=== PATIENT | male | born 1980 | race Caucasian/White ===

== ENCOUNTER → 2020-03-09 07:17 | Outpatient (CLI) | payer OTHER, SELFPAY ==
[2020-03-09 08:03] LABS: Add Manual Diff / Slide Review NO; Basophils Absolute Auto 0 /uL (0-100); Basophils Percent Auto 0.3 % (0-2); Eosinophils Absolute Auto 300 /uL (0-450); Eosinophils Percent Auto 4.9 % (2-4); Hematocrit 43.4 % (41-53); Hemoglobin 15.3 g/dL (13.5-17.5); Lymphocytes Absolute Auto 1700 /uL (1100-4500); Lymphocytes Percent Auto 29.4 % (25-40); Mean Corpuscular HGB Conc 35.2 % (30-36); Mean Corpuscular Volume 88.2 fL (80-100); Monocytes Absolute Auto 600 /uL (0-900); Monocytes Percent Auto 10.4 % (3-14); Neutrophils Absolute Auto 3100 /uL (1500-7000); Platelet Count 267 X10^3/uL (150-400); Red Blood Cell Count 4.93 X10^6/uL (4.5-5.9); Red Cell Distribution Width 13.1 % (11.6-14.8); White Blood Cell Count 5.7 X10^3/uL (4.5-11.0)
[2020-03-09 08:23] LABS: Alanine Aminotransferase 58 IU/L (<50); Albumin 4.6 g/dL (3.5-5.0); Albumin Globulin Ratio 1.6 (1.0-2.8); Alkaline Phosphatase 68 U/L (38-126); Aspartate Aminotransferase 40 IU/L (17-59); BUN Creatinine Ratio 16.2 (6-22); Bilirubin Total 1.5 mg/dL (0.2-1.3); Blood Urea Nitrogen 16 mg/dL (9-20); Calcium 9.9 mg/dL (8.4-10.2); Carbon Dioxide 26 mmol/L (22-32); Chloride 104 mmol/L (98-107); Cholesterol 120 mg/dL (140-199); Estimated Glomerular Filt Rate > 60.0 mL/min (>60); Globulin 2.8 g/dL (1.7-4.1); Glucose 138 mg/dL (70-100); HDL Cholesterol 54 mg/dL (40-60); HEMOLYSIS < 15 (0-50); LDL Cholesterol Calculated 55 mg/dL (<100); Potassium 4.8 mmol/L (3.4-5.1); Sodium 139 mmol/L (137-145); Total Protein 7.4 g/dL (6.3-8.2); Triglycerides 53 mg/dL (35-150)
[2020-03-09 08:55] LABS: Thyroid Stimulating Hormone 1.65 uIU/mL (0.47-4.68)
== END ==
PROVIDERS: PCP Family Medicine; Referring Provider Family Medicine; Visit Provider Family Medicine
DX: F90.9 Attention-deficit hyperactivity disorder, unspecified type (principal)
CPT/HCPCS: 36415; 80053; 80061; 84443; 85025

== ENCOUNTER → 2022-01-21 07:46 | Outpatient (CLI) | payer OTHER, SELFPAY ==
--- NOTE | 2022-01-21 07:47 | DI.US.S_ITS ---
PROCEDURE: US SCROTUM INDICATIONS: RIGHT SCROTAL LUMP TECHNIQUE: Real-time scanning was performed of the scrotum and testicles, with image documentation. Color and pulse Doppler interrogation was performed of both testicles. COMPARISON: None. FINDINGS: Right: Testicle is normal in size at 5.3 x 2.5 x 3.0 cm, and homogenous in echotexture. Epididymal cyst is present measuring 8 x 6 x 8 mm. No hydrocele or varicoceles. Overlying scrotal skin is normal in thickness. Left: Testicle is normal in size at 5.1 x 2.2 x 2.9 cm, and homogeneous in echotexture. Epididymis is normal in overall size and morphology. No hydrocele or varicoceles. Overlying scrotal skin is normal in thickness. Doppler: Color and pulse Doppler demonstrate normal and symmetric arterial flow in both testicles. IMPRESSION: Right epididymal head cyst. Dictated by: Evonne Elkins M.D. on 01/21/2022 at 18:54 Approved by: Evonne Elkins M.D. on 01/21/2022 at 18:55
== END ==
PROVIDERS: PCP Family Medicine; Referring Provider Family Medicine; Visit Provider Family Medicine
DX: N50.3 Cyst of epididymis (principal); N50.89 Other specified disorders of the male genital organs; Z98.52 Vasectomy status
CPT/HCPCS: 76870

== ENCOUNTER 2022-05-12 09:08 | Emergency (ER) | payer OTHER, SELFPAY ==
--- NOTE | 2022-05-12 | DI.RAD.S_ITS ---
PROCEDURE: XR FEMUR LT MIN 2V INDICATIONS: LEFT LEG INJURY TECHNIQUE: 4 views of the femur were acquired. COMPARISON: None. FINDINGS: Bones: No acute femoral fractures or dislocations. Comminuted and impacted fracture involving proximal tibia is seen extending to lateral tibial plateau. Slight displacement and depression at proximal tibial fracture site is seen. No suspicious bony lesions. Soft tissues: Moderate lipohemarthrosis is seen. No suspicious soft tissue calcifications or masses. IMPRESSION: Acute comminuted and slightly displaced left proximal tibial fracture. No acute left femoral fracture or dislocation. No evidence of avascular necrosis of femoral head. Dictated by: Kkio Parrish M.D. on 05/12/2022 at 10:18 Approved by: Kiko Parrish M.D. on 05/12/2022 at 10:21
[2022-05-12 09:09] VITALS: BP 127/77; PULSE 107; RESP 16; TEMP 36.6; O2SAT 97; BMI 23.6
[2022-05-12 09:15] VITALS: PULSE 102; O2SAT 99
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
[2022-05-12] MEDS: KETOROLAC 30 MG/ML VIAL 15 MG IV (09:49)
[2022-05-12] MEDS: HYDROMORPHONE 0.5 MG INJ IV ×2 (09:50→10:56)
[2022-05-12] MEDS: ONDANSETRON 4 MG/2 ML INJ IV (09:50)
[2022-05-12] MEDS: SODIUM CHLORIDE 0.9% 1,000 ML 150 ML IV (09:50)
[2022-05-12 10:15] LABS: COVID19 -Nasal RAPID Negative (Negative)
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
[2022-05-12 13:02] VITALS: PULSE 97; O2SAT 99
[2022-05-12 13:03] VITALS: BP 136/82; PULSE 95; O2SAT 99
[2022-05-12] MEDS: HYDROMORPHONE 1 MG INJ IV (13:27)
--- NOTE | 2022-05-12 14:52 | PC.NURSE ---
Normal saline fluids running at time of transport with [facility], per order.
== END 2022-05-12 13:50 | disposition short-term general hospital (02) ==
PROVIDERS: Emergency Provider Emergency Medicine; PCP Family Medicine
DX: S82.142A Displaced bicondylar fracture of left tibia, initial encounter for closed fracture (principal); S86.892A Other injury of other muscle(s) and tendon(s) at lower leg level, left leg, initial encounter; V29.9XXA Motorcycle rider (driver) (passenger) injured in unspecified traffic accident, initial encounter; Z20.822 Contact with and (suspected) exposure to COVID-19
CPT/HCPCS: 36415; 73552; 73590; 87635; 96361; 96374; 96375; 96376; 99284; C9803; J1170; J1885; J2405

== ENCOUNTER 2022-05-15 12:48 | Emergency (ER) | payer OTHER, SELFPAY ==
[2022-05-15 12:52] VITALS: BP 136/77; PULSE 87; RESP 15; TEMP 36.8; O2SAT 98; BMI 24.0
--- NOTE | 2022-05-15 14:01 | DI.US.S_ITS ---
PROCEDURE: US PERIPH VENOUS LOW EXTREM LT INDICATIONS: left tibial plateau fx, on lovenox, left calf swelling/numbn TECHNIQUE: Real-time imaging, as well as color and pulse Doppler interrogation, were performed of the lower extremity deep veins from the inguinal ligament to the popliteal fossa. COMPARISON: None. FINDINGS: The common femoral, femoral and popliteal veins are normally compressible, and free of intraluminal thrombus. Color and pulse Doppler demonstrate normal phasic intraluminal flow. There is normal augmentation response to distal compression maneuver. IMPRESSION: Negative for deep venous thrombosis. Dictated by: Navneet Moody M.D. on 05/15/2022 at 13:40 Approved by: Navneet Moody M.D. on 05/15/2022 at 13:40
[2022-05-15] MEDS: OXYCODONE/ACETAMINOPHEN 5/325 TABLET 2 TAB PO (14:26)
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
--- NOTE | 2022-05-15 16:00 | ED.LOWEXIN ---
HPI - Extremity Injury (Lower) <NEEMA Vincent - Last Filed: 05/15/22 16:10> General Chief Complaint: Extremity Injury, Lower Stated Complaint: Possible blood clot post surgery Time Seen by Provider: 05/15/22 13:50 Source: patient Mode of arrival: Ambulatory History of Present Illness HPI Narrative: This is a 42-year-old male with recent fracture of his left tibial plateau and left patellar tendon avulsion on 05/12/2022 who presents to the emergency department status post external fixation by Dr. Deluca at [facility] with concern for DVT due to his left calf numbness that started this morning. Patient denies any sensation changes to his left foot, denies any cold sensation, states that he can still wiggle his toes, and has sensation of most of his left leg but states that sensation dull on the lateral aspect of his calf. He has ecchymosis, denies any recent bleeding, denies any fever, shortness of breath, endorses that he is on enoxaparin subcutaneous injections for anticoagulation. States that he was supposed to be on b.i.d. dosing but realized today that he has only had one today dosing for the last three days following his heparin drip in the hospital. Patient denies any pain after proportion, states that he is on for his acute pain in his left leg. Related Data Previous Rx's Medication Instructions Recorded methylphenidate HCl 18 mg 18 mg PO DAILY #90 tabs 12/20/21 tablet,extended release 24 hr methylphenidate HCl 36 mg 36 mg PO DAILY #90 tabs 12/20/21 tablet,extended release 24 hr Allergies Allergy/AdvReac Type Severity Reaction Status Date / Time cephalexin [From KEFLEX] Allergy Unknown diarrhea Verified 05/15/22 12:51 morphine [MORPHINE] Allergy Unknown Verified 05/15/22 12:51 Review of Systems <NEEMA Vincent - Last Filed: 05/15/22 16:10> Review of Systems Narrative: General: denies fever, chills, malaise, sweats, fatigue Head/Neck: denies headache, neck pain, dizziness Eyes: denies visual changes, eye pain Cardio: denies chest pain, palpitations, edema Respiratory: denies dyspnea, cough, orthopnea GI: denies abdominal pain, nausea, vomiting, or diarrhea : denies dysuria, hematuria, urinary retention, frequency or incontinence MSK: denies joint pain, new muscle weakness, endorses new lateral numbness and tingling along his calf, denies any significant areas of pain, states that his calf is still soft to palpation but more firm than initially Skin: denies rash, itching, skin lesions or other Neuro: denies numbness, tingling Patient History <NEEMA Vincent - Last Filed: 05/15/22 16:10> Medical History ADHD Chronic allergic rhinitis Testicular mass Surgical History Hx of vasectomy Social History Smoking Status: Former smoker Smoking Status: Former smoker alcohol intake frequency: 3 or more drinks per day Alcohol type: beer Substance Use Type: does not use Exam <NEEMA Vincent - Last Filed: 05/15/22 16:10> Narrative Exam Narrative: Independently reviewed vitals signs and nursing notes. General: cooperative, comfortable, in no acute distress, well groomed Head: atraumatic, symmetrical facial expressions Neck: supple Eyes: equal round and reactive, EOMI, conjunctiva normal Nose: nares patent, no rhinorrhea Mouth/Throat: moist mucus membranes Cardiovascular: regular rate and rhythm, no peripheral edema, warm extremities Respiratory: normal effort, able to speak in complete sentences, no audible wheezing, stridor, or rales. No retractions or tachypnea. GI: abdomen soft, nontender to palpation, nondistended, no masses, no exquisite tenderness with exam, without guarding or rebound. MSK: moves all extremities, neurovascularly intact, no weakness, normal tone, left leg with external fixator in place, no significant tenderness, gastrocnemius is soft to palpation although lower extremity is edematous, ecchymosis present, no crepitus, dullness to sensation along the lateral calf, PT and DP pulses are 1+, PT difficult to assess due to the edema, brisk cap refill in his toes, extremity is warm, no other edema anywhere. Skin: brisk capillary refill, no rash, no erythema Neuro: normal speech and cognition, A&O x3 Psych: mental status is grossly normal, congruent mood, normal affect, pleasant and cooperative Initial Vital Signs Initial Vital Signs: Vital Signs Temperature 98.3 F 05/15/22 12:52 Pulse Rate 87 05/15/22 12:52 Respiratory Rate 15 05/15/22 12:52 Blood Pressure 136/77 05/15/22 12:52 Pulse Oximetry 98 05/15/22 12:52 Oxygen Delivery Method 05/15/22 12:52 <Parrish Paulino DO - Last Filed: 05/15/22 16:17> Initial Vital Signs Initial Vital Signs: Vital Signs Temperature 98.3 F 05/15/22 12:52 Pulse Rate 87 05/15/22 12:52 Respiratory Rate 15 05/15/22 12:52 Blood Pressure 136/77 05/15/22 12:52 Pulse Oximetry 98 05/15/22 12:52 Oxygen Delivery Method 05/15/22 12:52 Course <NEEMA Vincent - Last Filed: 05/15/22 16:10> Orders Ordered: ED Orders 05/15/22 14:01 periph venous low extrem lt Stat Discontinued Medications Oxycodone/Acetaminophen (Oxycodone/Acetaminophen 5/325 Tablet) 2 tab PO NOW ONE Stop: 05/15/22 14:05 Last Admin: 05/15/22 14:26 Dose: 2 tab Documented By: AT Vital Signs Vital signs: Vital Signs - 8 hr 05/15/22 12:52 Temperature 98.3 F Pulse Rate 87 Respiratory Rate 15 Blood Pressure 136/77 Pulse Oximetry 98 Oxygen Delivery Method Room Air <Parrish Paulino DO - Last Filed: 05/15/22 16:17> Orders Ordered: ED Orders 05/15/22 14:01 periph venous low extrem lt Stat Discontinued Medications Oxycodone/Acetaminophen (Oxycodone/Acetaminophen 5/325 Tablet) 2 tab PO NOW ONE Stop: 05/15/22 14:05 Last Admin: 05/15/22 14:26 Dose: 2 tab Documented By: AT Vital Signs Vital signs: Vital Signs - 8 hr 05/15/22 12:52 Temperature 98.3 F Pulse Rate 87 Respiratory Rate 15 Blood Pressure 136/77 Pulse Oximetry 98 Oxygen Delivery Method Room Air MDM - Extremity Injury (Lower) <Janice Tim, [facility] - Last Filed: 05/15/22 16:10> Imaging Data US - DVT: Radiologist's Impression: PROCEDURE:? US PERIPH VENOUS LOW EXTREM LT ? INDICATIONS:? left tibial plateau fx, on lovenox, left calf swelling/numbn ? TECHNIQUE:? Real-time imaging, as well as color and pulse Doppler interrogation, were performed of the lower extremity deep veins from the inguinal ligament to the popliteal fossa.? ? COMPARISON:? None. ? FINDINGS:? The common femoral, femoral and popliteal veins are normally compressible, and free of intraluminal thrombus.? Color and pulse Doppler demonstrate normal phasic intraluminal flow.? There is normal augmentation response to distal compression maneuver. ? ? ? IMPRESSION:? ? Negative for deep venous thrombosis. ? ? Dictated by: Navneet Moody M.D. on 05/15/2022 at 13:40 ? ? Approved by: Navneet Moody M.D. on 05/15/2022 at 13:40 ? [facility] Narrative Medical decision making narrative: This is a 42-year-old male who is three days status post left tibial plateau fracture with patellar tendon avulsion, surgical repair with external hardware in place who presents to the emergency department with numbness along the lateral aspect of his left gastrocnemius with concern for deep vein thrombosis. Patient denies any worsening pain or pain out of proportion, his pain has been under control on his oxycodone, states that he is taking MiraLax each day to prevent constipation. Patient has intact sensation throughout all of his leg except for the lateral gastrocnemius which he has dullness to sensation. DVT ultrasound was obtained and negative for deep venous thrombosis. Patient is neurovascularly intact, brisk cap refill, PT is 1+ and difficult to assess due to edema, DP is 2+. No new range of motion deficit, discussion with patient about his results, he is on enoxaparin and now on correct dosing of b.i.d. injections daily. Patient reports that he was initially only on one injection daily and so tonight he will take his 2nd dose. He has been on enoxaparin for over 48 hours. This does not appear to be compartment syndrome at this time, patient's pain is under control, his gastrocnemius is still soft to palpation. Encourage close follow-up with his orthopedic surgeon Dr. Deluca. Patient is resting, elevating at home, his pain is under control, denies any other concerns. Patient is appropriate and amenable to discharge home. Vital signs are stable on repeat examination is unremarkable. Patient has been informed of results. Patient has been given strict return to ER precautions for any new or worsening symptoms. Patient understands to follow up closely with outpatient providers as instructed. Patient understands plan and agrees to discharge home. All questions and concerns answered at this time. Discharge Plan Departure Patient Disposition: Home Clinical Impression: Encounter for assessment for deep vein thrombosis (DVT) Instructions: Edema Activity Restrictions/Additional Instructions: You have been diagnosed with left lower extremity swelling without evidence of deep vein thrombosis. You have a good pulse, no evidence of any vascular insufficiency, swelling is expected, ice elevation are your only friends for that. The swelling is likely causing your numbness, there is expected edema and bruising but overall your leg looks great. Please follow-up with Dr. Deluca as you have scheduled, we are always here for you in the emergency department with need us. If you ever want to look up [employer], we like to ride bikes and all the things too. :) Keep taking your enoxaparin as it is prescribed, stay hydrated, keep your leg up as much as you can, don't get a butt sore. If you develop any new numbness or tingling, cold sensation, or pain out of proportion please return to the emergency department for another evaluation. Wishing you smooth healthing. Keep on the MiraLax, pain pills, Tylenol, ice and ibuprofen as needed, in addition to the other things. Cheers *What to do: *Please continue to take your regular medications as directed. [ ] New medication prescriptions sent to your pharmacy: [ ] [ ] New medication written as a paper prescription [ x] No new medications given *Please follow up with your primary care provider in 2-3 days, call for an appointment. Let them know you were seen in the Emergency Department and that we asked that you be seen for follow-up. We will electronically transmit a record of today's note if your PCP is in our system *If you do not have a primary care provider please contact [phone] to establish care with one of [facility] primary care providers. *Return to Emergency Department if you should have any new, worsening or concerning symptoms, such as [fever greater than 101F, chills, worsening pain, persistent vomiting or other bothersome symptoms] Prescriptions: No Action methylphenidate HCl 18 mg tablet extended release 24hr 18 mg PO DAILY Qty: 90 0RF methylphenidate HCl 36 mg tablet extended release 24hr 36 mg PO DAILY Qty: 90 0RF Referrals: Dimas Deluca MD [Non-Staff] - Abelardo Butt DO [Primary Care Provider] - Visit Report Forms: Patient Portal/API <Parrish Paulino DO - Last Filed: 05/15/22 16:17> [facility]: Dr Paulino Co-Sign Statement: I was available for consultation during this patient's emergency department visit. This chart is signed by myself for administrative purposes only. I did not have direct contact with this patient during this visit. They were seen independently by the APC.
== END 2022-05-15 14:50 | disposition home or self-care (01) ==
PROVIDERS: Emergency Provider Nurse Practitioner Critical Care Medicine; PCP Family Medicine
DX: I82.402 Acute embolism and thrombosis of unspecified deep veins of left lower extremity (principal)
CPT/HCPCS: 93971; 99283

== ENCOUNTER 2022-05-19 09:51 | Emergency (ER) | payer OTHER, SELFPAY ==
[2022-05-19] VITALS (13 sets, daily range): BP systolic 116–130; BP diastolic 71–90; PULSE 69–92; RESP 18; TEMP 36.7; O2SAT 98–100; BMI 25.0
--- NOTE | 2022-05-19 | DI.US.S_ITS ---
PROCEDURE: US PERIP VENOUS LOW EXTREM LT INDICATIONS: POST OP RULE OUT DVT TECHNIQUE: Real-time imaging, as well as color and pulse Doppler interrogation, were performed of the lower extremity deep veins from the inguinal ligament to the popliteal fossa. COMPARISON: [facility], , [facility] VENOUS LOW EXTREM LT, 05/15/2022, 15:11. FINDINGS: The common femoral, femoral and popliteal veins are normally compressible, and free of intraluminal thrombus. Color and pulse Doppler demonstrate normal phasic intraluminal flow. There is normal augmentation response to distal compression maneuver. IMPRESSION: No deep vein thrombosis of the left lower extremity. Dictated by: Germaine Issa M.D. on 05/19/2022 at 11:38 Approved by: Germaine Issa M.D. on 05/19/2022 at 11:38
--- NOTE | 2022-05-19 10:24 | DI.RAD.S_ITS ---
PROCEDURE: XR FEMUR LT MIN 2V INDICATIONS: post op pain TECHNIQUE: 2 views of the femur were acquired. COMPARISON: [facility], , XR FEMUR LT MIN 2V, 05/12/2022, 9:21. FINDINGS: Bones: Comminuted, displaced, intra-articular fracture of the proximal tibia. External fixation hardware identified with fixation screws in the proximal right femur in distal right femur. Soft tissues: No suspicious soft tissue calcifications or masses. IMPRESSION: Comminuted, displaced proximal tibia fracture. Status post placement of external fixator. Dictated by: Fawn Moore MD, PhD on 05/19/2022 at 11:07 Approved by: Fawn Moore MD, PhD on 05/19/2022 at 11:08
--- NOTE | 2022-05-19 10:24 | DI.RAD.S_ITS ---
PROCEDURE: XR CHEST 1V INDICATIONS: post op fever TECHNIQUE: One view of the chest was acquired. COMPARISON: None. FINDINGS: Surgical changes and devices: None. Lungs and pleura: Lungs are clear. No pleural effusions or pneumothorax. Mediastinum: Mediastinal contours appear normal. Heart size is normal. Bones and chest wall: No suspicious bony lesions. Overlying soft tissues appear unremarkable. IMPRESSION: No acute cardiopulmonary disease process. Dictated by: Fawn Moore MD, PhD on 05/19/2022 at 11:08 Approved by: Fawn Moore MD, PhD on 05/19/2022 at 11:08
--- NOTE | 2022-05-19 10:24 | DI.RAD.S_ITS ---
PROCEDURE: XR TIBIA FIBULA LT 2V INDICATIONS: post op pain TECHNIQUE: 2 views of the tibia and fibula were acquired. COMPARISON: [facility], CR, XR TIBIA FIBULA LT 2V, 05/12/2022, 9:21. FINDINGS: Bones: External fixator device with fixation screws in the tibia and the distal femur. Comminuted fracture of the proximal tibia is unchanged. Soft tissues: No suspicious soft tissue calcifications or masses. IMPRESSION: Comminuted, displaced proximal tibia fracture. Status post placement of external fixator. Dictated by: Fawn Moore MD, PhD on 05/19/2022 at 11:05 Approved by: Fawn Moore MD, PhD on 05/19/2022 at 11:07
--- NOTE | 2022-05-19 10:24 | DI.RAD.S_ITS ---
PROCEDURE: XR KNEE LT 1TO2V INDICATIONS: pain post op TECHNIQUE: 3 views of the knee were acquired. COMPARISON: None. FINDINGS: Bones: Comminuted, displaced, intra-articular fracture of the proximal tibia. External fixator device identified with fixation screw in the distal left femur. Soft tissues: Knee joint fluid noted likely representing hemarthrosis. No suspicious soft tissue calcifications. IMPRESSION: Comminuted, displaced proximal tibia fracture. Status placed placement of external fixator. Dictated by: Fawn Moore MD, PhD on 05/19/2022 at 11:08 Approved by: Fawn Moore MD, PhD on 05/19/2022 at 11:09
--- NOTE | 2022-05-19 10:24 | ED_ITS ---
HPI - Extremity Injury (Lower) General Chief Complaint: Extremity Injury, Lower Stated Complaint: leg pain Time Seen by Provider: 05/19/22 10:24 Source: patient and EMS Mode of arrival: EMS History of Present Illness HPI Narrative: Patient is a healthy 42-year-old male status post tibial plateau fracture with patellar tendon avulsion with external fixation postop day 6, presents today with increasing pain and swelling. He was seen and evaluated 4 days ago for something similar. He has been taking his oxycodone methocarbamol Tylenol regularly. He says for the last 2 days he is unable to get up. He is on Lovenox injections twice daily for DVT prophylaxis. However he says with any standing and vertical position of his leg pain is so intense he cannot breathe. He has had fevers of what 100.5-101. He has night sweats. He denies any cough. He is short of breath only because whenever he moves his leg hurts so badly. He denies any painful or frequent urination. He is currently afebrile here but did just take some Tylenol. He gets Kalyan pain in his leg he has had some spasm in his triceps with numbness or tingling in the ulnar distribution. But no strength change hand that seems to have improved now. Related Data Previous Rx's Medication Instructions Recorded methylphenidate HCl 18 mg 18 mg PO DAILY #90 tabs 12/20/21 tablet,extended release 24 hr methylphenidate HCl 36 mg 36 mg PO DAILY #90 tabs 12/20/21 tablet,extended release 24 hr gabapentin 300 mg capsule 300 mg PO TID #60 caps 05/19/22 Allergies Allergy/AdvReac Type Severity Reaction Status Date / Time cephalexin [From KEFLEX] Allergy Unknown diarrhea Verified 05/19/22 09:53 morphine [MORPHINE] Allergy Unknown Verified 05/19/22 09:53 Review of Systems Review of Systems Narrative: GENERAL: See HPI HEENT: Denies sinus pain, ear pain, sore throat, difficulty swallowing, neck pain RESPIRATORY: Denies dyspnea, cough, wheezing, hemoptysis, sputum. CARDIOVASCULAR: Denies chest pain, palpitations, orthopnea, edema GASTROINTESTINAL: Denies nausea, vomiting, abdominal pain, diarrhea, constipation, melena. : Denies dysuria, frequency, incontinence, hematuria, urinary retention, flank pain. MUSCULOSKELETAL: See HPI SKIN: No rash, no erythema, no pruritus NEUROLOGIC: Denies weakness, dizziness, headache, numbness, change in speech, confusion PSYCHIATRIC: No concerning psychosocial issues. 12 point review of systems is negative except for those stated above and HPI Patient History Medical History ADHD Chronic allergic rhinitis Testicular mass Surgical History Hx of vasectomy Social History Smoking Status: Former smoker Smoking Status: Former smoker alcohol intake frequency: 3 or more drinks per day Alcohol type: beer Substance Use Type: does not use Exam Initial Vital Signs Initial Vital Signs: Vital Signs Temperature 98.1 F 05/19/22 09:53 Pulse Rate 89 05/19/22 09:53 Respiratory Rate 18 05/19/22 09:53 Blood Pressure 130/90 05/19/22 09:53 Pulse Oximetry 98 05/19/22 09:53 Oxygen Delivery Method 05/19/22 09:53 GENERAL: Alert well-appearing 42-year-old male HEENT: Head atraumatic,EOMI, pupils reactive, face symmetric, moist mucous memb ranes CARDIOVASCULAR: Regular rate and rhythm without murmurs, rubs or gallops. RESPIRATORY: Breath sounds equal bilaterally, no wheezes rales or rhonchi. ABDOMEN: Soft, nontender. Normoactive bowel sounds all 4 quadrants. No guarding or rebound. EXTREMITIES: External fixation left leg distal pedal pulse is palpable and present by Doppler. Good cap refill leg is mildly swelling insertion sites of ex fix are within and dry non erythematous NEUROLOGICAL: Alert and oriented x4. SKIN: Warm, dry, no laceration, no petechiae, no rashes or lesions. Course Orders Ordered: ED Orders 05/19/22 10:24 Chest [XR chest 1V] Stat XR femur LT min 2V Stat XR knee LT 1to2V Stat XR tibia fibula LT 2V Stat 05/19/22 10:37 Blood Culture Stat 05/19/22 11:32 UA Complete [Urinalysis and Microscopic] Stat 05/19/22 14:05 COVID19 -Nasal RAPID/Pre-Proc Stat Discontinued Medications Hydromorphone HCl (Hydromorphone 1 Mg Inj) 1 mg IV NOW ONE Stop: 05/19/22 10:25 Last Admin: 05/19/22 10:44 Dose: 1 mg Documented By: GLORIA Hydromorphone HCl (Hydromorphone 1 Mg Inj) 1 mg IV NOW ONE Stop: 05/19/22 14:09 Last Admin: 05/19/22 14:14 Dose: 1 mg Documented By: GLORIA Sodium Chloride (Normal Saline 0.9%) 1,000 mls @ 1,000 mls/hr IV BOLUS ONE Stop: 05/19/22 11:23 Last Infusion: 05/19/22 11:48 Dose: 0 mls/hr Documented By: Admin: 05/19/22 10:44 Dose: 1,000 mls/hr Documented By: GLORIA Ondansetron HCl (Ondansetron 4 Mg/2 Ml Inj) 4 mg IV NOW ONE Stop: 05/19/22 10:25 Last Admin: 05/19/22 10:44 Dose: 4 mg Documented By: GLORIA Vital Signs Vital signs: Vital Signs - 8 hr 05/19/22 11:30 05/19/22 12:00 05/19/22 12:30 Pulse Rate 79 76 71 Respiratory Rate 18 Blood Pressure 116/75 Pulse Oximetry 100 99 99 05/19/22 13:00 05/19/22 13:30 05/19/22 14:00 Pulse Rate 75 69 77 Respiratory Rate Blood Pressure Pulse Oximetry 100 100 99 05/19/22 14:16 05/19/22 14:16 05/19/22 15:11 Pulse Rate 84 Respiratory Rate Blood Pressure 129/71 127/81 Pulse Oximetry 99 05/19/22 15:11 Pulse Rate 83 Respiratory Rate Blood Pressure Pulse Oximetry 100 MDM - Extremity Injury (Lower) Lab Data Result diagrams: 05/19/22 10:03 05/19/22 10:03 Labs: Lab Results 05/19/22 05/19/22 05/19/22 Range/Units 10:03 10:03 10:03 WBC 9.8 (4.5-11.0) X10^3/uL RBC 4.35 L (4.5-5.9) X10^6/uL Hgb 13.5 (13.5-17.5) g/dL Hct 37.5 L (41-53) % MCV 86.1 (80-100) fL MCH 31.1 (26-34) PG MCHC 35.7 (30-36) % RDW 12.7 (11.6-14.8) % Plt Count 378 (150-400) X10^3/uL Neut % (Auto) 74.6 (50-75) % Lymph % (Auto) 12.3 L (25-40) % [place] % (Auto) 11.2 (3-14) % Eos % (Auto) 1.2 L (2-4) % Baso % (Auto) 0.7 (0-2) % Neut # (Auto) 7300 H (6920-2366) /uL Lymph # (Auto) 1200 (9872-1516) /uL [place] # (Auto) 1100 H (0-900) /uL Eos # (Auto) 100 (0-450) /uL Baso # (Auto) 100 (0-100) /uL ESR 77 H (0-15) MM/HR Sodium 138 (137-145) mmol/L Potassium 4.0 (3.4-5.1) mmol/L Chloride 99 (98-107) mmol/L Carbon Dioxide 29 (22-32) mmol/L BUN 13 (9-20) mg/dL Creatinine 0.86 (0.66-1.25) mg/dL Estimated GFR > 60 (>60) mL/min BUN/Creatinine Ratio 15.1 (6-22) Glucose 123 H (70-100) mg/dL Lactate 1.2 (0.7-2.1) mmol/L Calcium 9.6 (8.4-10.2) mg/dL Total Bilirubin 2.7 H (0.2-1.3) mg/dL AST 48 (17-59) IU/L ALT 94 H (<50) IU/L Alkaline Phosphatase 99 (38-126) U/L C-Reactive Protein 11.1 H (<1.0) mg/dL Total Protein 8.4 H (6.3-8.2) g/dL Albumin 4.7 (3.5-5.0) g/dL Globulin 3.7 (1.7-4.1) g/dL Albumin/Globulin Ratio 1.3 (1.0-2.8) Procalcitonin 0.18 (<0.5) ng/mL Urine Color Urine Appearance Urine pH (4.5-8.0) Ur Specific [place] (1.000-1.035) Urine Protein (Negative) Urine Glucose (UA) (Negative) g/dL Urine Ketones (NEGATIVE) Urine Occult Blood (Negative) Urine Nitrate (Negative) Urine Bilirubin (NEGATIVE) Urine Urobilinogen (0.2) E.U./dL Ur Leukocyte Esterase (NEGATIVE) Urine RBC (0-5/HPF) Urine WBC (0-5/HPF) Urine Bacteria (None) Ur Culture Indicated? Micro UA Comment SARS-CoV-2 (PCR) (Negative) 05/19/22 05/19/22 Range/Units 11:32 14:05 WBC (4.5-11.0) X10^3/uL RBC (4.5-5.9) X10^6/uL Hgb (13.5-17.5) g/dL Hct (41-53) % MCV (80-100) fL MCH (26-34) PG MCHC (30-36) % RDW (11.6-14.8) % Plt Count (150-400) X10^3/uL Neut % (Auto) (50-75) % Lymph % (Auto) (25-40) % [place] % (Auto) (3-14) % Eos % (Auto) (2-4) % Baso % (Auto) (0-2) % Neut # (Auto) (9747-3372) /uL Lymph # (Auto) (1573-2968) /uL [place] # (Auto) (0-900) /uL Eos # (Auto) (0-450) /uL Baso # (Auto) (0-100) /uL ESR (0-15) MM/HR Sodium (137-145) mmol/L Potassium (3.4-5.1) mmol/L Chloride (98-107) mmol/L Carbon Dioxide (22-32) mmol/L BUN (9-20) mg/dL Creatinine (0.66-1.25) mg/dL Estimated GFR (>60) mL/min BUN/Creatinine Ratio (6-22) Glucose (70-100) mg/dL Lactate (0.7-2.1) mmol/L Calcium (8.4-10.2) mg/dL Total Bilirubin (0.2-1.3) mg/dL AST (17-59) IU/L ALT (<50) IU/L Alkaline Phosphatase (38-126) U/L C-Reactive Protein (<1.0) mg/dL Total Protein (6.3-8.2) g/dL Albumin (3.5-5.0) g/dL Globulin (1.7-4.1) g/dL Albumin/Globulin Ratio (1.0-2.8) Procalcitonin (<0.5) ng/mL Urine Color [place] Urine Appearance Clear Urine pH 6.5 (4.5-8.0) Ur Specific [place] 1.015 (1.000-1.035) Urine Protein 1+ H (Negative) Urine Glucose (UA) Negative (Negative) g/dL Urine Ketones 1+ H (NEGATIVE) Urine Occult Blood Negative (Negative) Urine Nitrate Negative (Negative) Urine Bilirubin Negative (NEGATIVE) Urine Urobilinogen 0.2 (0.2) E.U./dL Ur Leukocyte Esterase Negative (NEGATIVE) Urine RBC None seen (0-5/HPF) Urine WBC None seen (0-5/HPF) Urine Bacteria None seen (None) Ur Culture Indicated? Cult not indicated Micro UA Comment Microscopic normal SARS-CoV-2 (PCR) Negative (Negative) Imaging Data US - DVT: Radiologist's Impression: Signed Patient: Kenroy Saavedra MR#: [id number] : 1980 Acct:[id number] Age/Sex: 42 / M Date of Service: 05/19/22 Loc: ED Accession Number: [id number] ?? Procedure: [facility] venous low extrem lt Ordering Provider: Marlene Phillip D.O. PROCEDURE:? [facility] VENOUS LOW EXTREM LT ? INDICATIONS:? POST OP RULE OUT DVT ? TECHNIQUE:? Real-time imaging, as well as color and pulse Doppler interrogation, were per formed of the lower extremity deep veins from the inguinal ligament to the popliteal fossa.? ? COMPARISON:? [facility], [facility] VENOUS LOW EXTREM LT, 05/15/2022, 15:11. ? FINDINGS:? The common femoral, femoral and popliteal veins are normally compressible, and free of intraluminal thrombus.? Color and pulse Doppler demonstrate normal phasic intraluminal flow.? There is normal augmentation response to distal compression maneuver. ? ? IMPRESSION:? No deep vein thrombosis of the left lower extremity. ? ? Dictated by: Germaine Issa M.D. on 05/19/2022 at 11:38 ? ? Chest x-ray: Radiologist's Impression: [facility] [address] [place] [id number] XRay Report Signed Patient: Kenroy Saavedra MR#: [id number] : 1980 Acct:[id number] Age/Sex: 42 / M Date of Service: 05/19/22 Loc: ED Accession Number: [id number] ?? Procedure: XR chest 1V Ordering Provider: Marlene Phillip D.O. PROCEDURE:? XR CHEST 1V ? INDICATIONS:? post op fever ? TECHNIQUE:? One view of the chest was acquired.? ? COMPARISON:? None. ? FINDINGS:? ? Surgical changes and devices:? None.? ? Lungs and pleura:? Lungs are clear.? No pleural effusions or pneumothorax.? ? Mediastinum:? Mediastinal contours appear normal.? Heart size is normal.? ? Bones and chest wall:? No suspicious bony lesions.? Overlying soft tissues appear unremarkable.? ? IMPRESSION:? No acute cardiopulmonary disease process. ? ? Dictated by: Fawn Moore MD, PhD on 05/19/2022 at 11 Extremity x-ray #1: Radiologist's Impression: XRay Report Signed Patient: Kenroy Saavedra MR#: [id number] : 1980 Acct:[id number] Age/Sex: 42 / M Date of Service: 05/19/22 Loc: ED Accession Number: [id number] ?? Procedure: XR femur LT min 2V Ordering Provider: Marlene Phillip D.O. PROCEDURE:? XR FEMUR LT MIN 2V ? INDICATIONS:? post op pain ? TECHNIQUE:? 2 views of the femur were acquired.? ? [facility] 9:21. ? FINDINGS:? ? Bones:? Comminuted, displaced, intra-articular fracture of the proximal tibia.? External fixation hardware identified with fixation screws in the proximal right femur in distal right femur. ? Soft tissues:? No suspicious soft tissue calcifications or masses.? ? IMPRESSION:? Comminuted, displaced proximal tibia fracture.? Status post placement of external fixator. ? ? Dictated by: Fawn Moore MD, PhD on 05/19/2022 at 11:07 ? ? Extremity x-ray #2: Radiologist's Impression: XRay Report Signed Patient: Kenroy Saavedra MR#: [id number] : 1980 Acct:[id number] Age/Sex: 42 / M Date of Service: 05/19/22 Loc: ED Accession Number: [id number] ?? Procedure: XR knee LT 1to2V Ordering Provider: Marlene Phillip D.O. PROCEDURE:? XR KNEE LT 1TO2V ? INDICATIONS:? pain post op ? TECHNIQUE:? 3 views of the knee were acquired.? ? COMPARISON:? None. ? FINDINGS:? ? Bones:? Comminuted, displaced, intra-articular fracture of the proximal tibia.? External fixator device identified with fixation screw in the distal left femur. ? Soft tissues:? Knee joint fluid noted likely representing hemarthrosis.? No suspicious soft tissue calcifications.? ? ? IMPRESSION:? Comminuted, displaced proximal tibia fracture.? Status placed placement of external fixator. ? ? Dictated by: Fawn Moore MD, PhD on 05/19/2022 at 11:08 Extremity x-ray #3: Radiologist's Impression: Signed Patient: Kenroy Saavedra MR#: [id number] : 1980 Acct:[id number] Age/Sex: 42 / M Date of Service: 05/19/22 Loc: ED Accession Number: [id number] ?? Procedure: XR tibia fibula LT 2V Ordering Provider: Marlene Phillip D.O. PROCEDURE:? XR TIBIA FIBULA LT 2V ? INDICATIONS:? post op pain ? TECHNIQUE:? 2 views of the tibia and fibula were acquired.? ? COMPARISON:? [facility], , XR TIBIA FIBULA LT 2V, 05/12/2022, 9:21. ? FINDINGS:? ? Bones:? External fixator device with fixation screws in the tibia and the distal femur.? Comminuted fracture of the proximal tibia is unchanged. ? Soft tissues:? No suspicious soft tissue calcifications or masses.? ? IMPRESSION:? Comminuted, displaced proximal tibia fracture.? Status post placement of external fixator. ? ? Dictated by: Fawn Moore MD, PhD on 05/19/2022 at 11:05 ? [facility] Narrative Medical decision making narrative: The patient is here for his 3rd visit 2nd 1 postoperative for comminuted tibial plateau fracture. He has had fever but is afebrile here. Blood work is overall reassuring he has some mild elevation of inflammatory markers to be expected. However no leukocytosis no lactic acid. Chest x-ray and urinalysis are negative. Leg is swollen but not any more than I would expect to be. He is on DVT prophylaxis with Lovenox twice daily. Again DVT study is negative. 12:50pm Dr. Deluca, Orthopedics has been obtained patient's symptoms test results. He is quite familiar with patient who states that he has postoperative pain and swelling. Agrees with gabapentin 300 mg 3 times a day. Encouraged patient to elevate ice and not move. Patient is a COVID test after 2:00 p.m. for a procedure later this week. COVID test is negative Again reiterated to patient he must rest elevate ice. He is scheduled for another procedure again in 3 days Discharge Plan Departure Patient Disposition: Home Clinical Impression: Post-op pain Instructions: DI for Postoperative Pain Activity Restrictions/Additional Instructions: *You have been diagnosed with postoperative pain *What to do: You have a very badly broken bone. X-rays appear stable. There is no blood clot. (you are on medicine to help prevent this, to encourage due to sit on the couch) You must sit on the couch with your leg elevated ice as needed as much as possible. *Continue to take medications as directed Start gabapentin 300 mg 3 times a day--> SENT TO [facility] *Follow up with your primary care provider in 2-3 days or call [phone] Follow-up with orthopedics as scheduled *Return to ER if you should have increasing redness, fever, swelling or any new, worsening or concerning symptoms Prescriptions: New gabapentin 300 mg capsule 300 mg PO TID Qty: 60 0RF No Action methylphenidate HCl 18 mg tablet extended release 24hr 18 mg PO DAILY Qty: 90 0RF methylphenidate HCl 36 mg tablet extended release 24hr 36 mg PO DAILY Qty: 90 0RF Referrals: Abelardo Butt DO [Primary Care Provider] - Visit Report Forms: Patient Portal/API
[2022-05-19] MEDS: HYDROMORPHONE 1 MG INJ IV ×2 (10:44→14:14)
[2022-05-19] MEDS: ONDANSETRON 4 MG/2 ML INJ IV (10:44)
[2022-05-19] MEDS: SODIUM CHLORIDE 0.9% 1,000 ML 1000 ML IV (10:44)
[2022-05-19 10:52] LABS: Alanine Aminotransferase 94 IU/L (<50); Albumin 4.7 g/dL (3.5-5.0); Albumin Globulin Ratio 1.3 (1.0-2.8); Alkaline Phosphatase 99 U/L (38-126); Aspartate Aminotransferase 48 IU/L (17-59); BUN Creatinine Ratio 15.1 (6-22); Bilirubin Total 2.7 mg/dL (0.2-1.3); Blood Urea Nitrogen 13 mg/dL (9-20); Calcium 9.6 mg/dL (8.4-10.2); Carbon Dioxide 29 mmol/L (22-32); Chloride 99 mmol/L (98-107); Estimated Glomerular Filt Rate > 60 mL/min (>60); Globulin 3.7 g/dL (1.7-4.1); Glucose 123 mg/dL (70-100); HEMOLYSIS < 15 (0-50); Lactate (Lactic Acid) 1.2 mmol/L (0.7-2.1); Sodium 138 mmol/L (137-145); Total Protein 8.4 g/dL (6.3-8.2)
[2022-05-19 11:00] LABS: Add Manual Diff / Slide Review NO; Basophils Absolute Auto 100 /uL (0-100); Basophils Percent Auto 0.7 % (0-2); Eosinophils Absolute Auto 100 /uL (0-450); Eosinophils Percent Auto 1.2 % (2-4); Hematocrit 37.5 % (41-53); Hemoglobin 13.5 g/dL (13.5-17.5); Lymphocytes Absolute Auto 1200 /uL (1100-4500); Lymphocytes Percent Auto 12.3 % (25-40); Mean Corpuscular HGB Conc 35.7 % (30-36); Mean Corpuscular Hemoglobin 31.1 PG (26-34); Mean Corpuscular Volume 86.1 fL (80-100); Monocytes Absolute Auto 1100 /uL (0-900); Monocytes Percent Auto 11.2 % (3-14); Neutrophils Absolute Auto 7300 /uL (1500-7000); Neutrophils Percent Auto 74.6 % (50-75); Platelet Count 378 X10^3/uL (150-400); Red Blood Cell Count 4.35 X10^6/uL (4.5-5.9); Red Cell Distribution Width 12.7 % (11.6-14.8); White Blood Cell Count 9.8 X10^3/uL (4.5-11.0)
[2022-05-19 11:04] LABS: C-Reactive Protein Quant 11.1 mg/dL (<1.0)
[2022-05-19 11:07] LABS: Procalcitonin 0.18 ng/mL (<0.5)
[2022-05-19 11:31] LABS: Erythrocyte Sedimentation Rate 77 MM/HR (0-15)
[2022-05-19 11:52] LABS: Appearance Urine UA CLEAR; Bilirubin Urine UA NEGATIVE (NEGATIVE); Color Urine UA ORANGE; Glucose Urine UA NEGATIVE (Negative); Ketones Urine UA 1+ (NEGATIVE); Leukocyte Esterase Urine UA NEGATIVE (NEGATIVE); Nitrite Urine UA NEGATIVE (Negative); Occult Blood Urine UA NEGATIVE (Negative); Protein Urine UA 1+ (Negative); Specific Gravity Urine UA 1.015 (1.000-1.035); Urobilinogen Urine UA 0.2 E.U./dL (0.2); pH Urine UA 6.5 (4.5-8.0)
[2022-05-19 11:56] LABS: RBC Urine None Seen (0-5/HPF); WBC Urine None Seen (0-5/HPF)
[2022-05-19 11:57] LABS: Bacteria Urine None Seen; Culture Indicated Urine Cult Not Indicated; Urine Comments Microscopic Normal
[2022-05-19 14:47] LABS: COVID19 -Nasal RAPID Negative (Negative)
== END 2022-05-19 15:17 | disposition home or self-care (01) ==
PROVIDERS: Emergency Provider Emergency Medicine; PCP Family Medicine
DX: G89.18 Other acute postprocedural pain (principal); R50.9 Fever, unspecified; S82.143D Displaced bicondylar fracture of unspecified tibia, subsequent encounter for closed fracture with routine healing; Z20.822 Contact with and (suspected) exposure to COVID-19
CPT/HCPCS: 36415; 71045; 73552; 73560; 73590; 80053; 81001; 83605; 84145; 85025; 85651; 86140; 87040; 87635; 93971; 96361; 96374; 96375; 96376; 99284; C9803; J1170; J2405

== ENCOUNTER → 2023-10-28 08:00 | Outpatient (CLI) | payer OTHER, SELFPAY ==
[2023-10-28 08:58] LABS: Eosinophils Absolute Auto 200 /uL (0-450); Monocytes Absolute Auto 500 /uL (0-900); White Blood Cell Count 5.3 X10^3/uL (4.5-11.0)
[2023-10-28 09:10] LABS: Alanine Aminotransferase 82 IU/L (<50); Albumin 4.6 g/dL (3.5-5.0); Albumin Globulin Ratio 1.8 (1.0-2.8); Alkaline Phosphatase 54 U/L (38-126); Aspartate Aminotransferase 45 IU/L (17-59); BUN Creatinine Ratio 14.3 (6-22); Bilirubin Total 2.4 mg/dL (0.2-1.3); Blood Urea Nitrogen 14 mg/dL (9-20); Calcium 10.1 mg/dL (8.4-10.2); Carbon Dioxide 26 mmol/L (22-32); Chloride 99 mmol/L (98-107); Estimated Glomerular Filt Rate > 60 mL/min (>60); Globulin 2.6 g/dL (1.7-4.1); Glucose 115 mg/dL (70-100); HEMOLYSIS < 15 (0-50); Potassium 4.7 mmol/L (3.4-5.1); Sodium 135 mmol/L (137-145); Total Protein 7.2 g/dL (6.3-8.2)
[2023-10-28 09:14] LABS: Add Manual Diff / Slide Review NO; Basophils Absolute Auto 0 /uL (0-100); Basophils Percent Auto 0.8 % (0-2); Eosinophils Percent Auto 3.7 % (2-4); Hematocrit 45.1 % (41-53); Hemoglobin 16.2 g/dL (13.5-17.5); Lymphocytes Absolute Auto 1600 /uL (1100-4500); Lymphocytes Percent Auto 30.7 % (25-40); Mean Corpuscular HGB Conc 35.8 % (30-36); Mean Corpuscular Volume 86.5 fL (80-100); Neutrophils Absolute Auto 2900 /uL (1500-7000); Neutrophils Percent Auto 54.8 % (50-75); Platelet Count 296 X10^3/uL (150-400); Red Blood Cell Count 5.21 X10^6/uL (4.5-5.9); Red Cell Distribution Width 12.9 % (11.6-14.8)
[2023-10-28 09:50] LABS: TSH w/ Reflex to FT4 1.58 uIU/mL (0.47-4.68)
== END ==
PROVIDERS: PCP Family Medicine; Referring Provider Physician Assistant; Visit Provider Physician Assistant
DX: R53.83 Other fatigue (principal); Z79.899 Other long term (current) drug therapy
CPT/HCPCS: 36415; 80053; 84443; 85025

== ENCOUNTER → 2025-01-03 07:53 | Outpatient (CLI) | payer OTHER, SELFPAY ==
[2025-01-03 08:48] LABS: Add Manual Diff / Slide Review NO; Basophils Absolute Auto 0 /uL (0-100); Basophils Percent Auto 0.7 % (0-2); Eosinophils Absolute Auto 300 /uL (0-450); Eosinophils Percent Auto 4.8 % (2-4); Hematocrit 44.1 % (41-53); Hemoglobin 15.5 g/dL (13.5-17.5); Lymphocytes Absolute Auto 1400 /uL (1100-4500); Lymphocytes Percent Auto 25.3 % (25-40); Mean Corpuscular HGB Conc 35.1 % (30-36); Mean Corpuscular Hemoglobin 31.2 PG (26-34); Mean Corpuscular Volume 88.8 fL (80-100); Monocytes Absolute Auto 500 /uL (0-900); Monocytes Percent Auto 9.5 % (3-14); Neutrophils Absolute Auto 3300 /uL (1500-7000); Neutrophils Percent Auto 59.7 % (50-75); Platelet Count 277 X10^3/uL (150-400); Red Blood Cell Count 4.97 X10^6/uL (4.5-5.9); Red Cell Distribution Width 12.9 % (11.6-14.8); White Blood Cell Count 5.5 X10^3/uL (4.5-11.0)
[2025-01-03 09:13] LABS: Alanine Aminotransferase 71 IU/L (<50); Alkaline Phosphatase 80 U/L (38-126); Aspartate Aminotransferase 55 IU/L (17-59); BUN Creatinine Ratio 13.1 (6-22); Bilirubin Direct 0.3 mg/dL (0.0-0.4); Blood Urea Nitrogen 14 mg/dL (9-20); Calcium 9.7 mg/dL (8.4-10.2); Carbon Dioxide 26 mmol/L (22-32); Chloride 103 mmol/L (98-107); Estimated Glomerular Filt Rate > 60 mL/min (>60); Globulin 2.5 g/dL (1.7-4.1); Glucose 114 mg/dL (70-100); HEMOLYSIS < 15 (0-50); Potassium 4.6 mmol/L (3.4-5.1); Sodium 137 mmol/L (137-145); Total Protein 7.5 g/dL (6.3-8.2)
== END ==
PROVIDERS: PCP Family Medicine; Referring Provider Family Medicine; Visit Provider Family Medicine
DX: R74.8 Abnormal levels of other serum enzymes (principal); F90.9 Attention-deficit hyperactivity disorder, unspecified type
CPT/HCPCS: 36415; 80053; 82248; 85025

== ENCOUNTER 2025-09-06 19:45 | Emergency (ER) | payer OTHER, SELFPAY ==
[2025-09-06 19:47] VITALS: BP 139/92; PULSE 74; RESP 18; TEMP 36.7; O2SAT 99; BMI 22.9
--- NOTE | 2025-09-06 19:57 | DI.RAD.S_ITS ---
PROCEDURE: XR KNEE LT 3V INDICATIONS: knee laceration with chainsaw TECHNIQUE: 4 views of the knee were acquired. COMPARISON: [facility], CR, XR KNEE LT 1TO2V, 05/19/2022, 10:20. FINDINGS: Bones: No fractures or dislocations. Proximal tibial ORIF from prior proximal tibial fracture without evidence of hardware complication. No suspicious bony lesions. Soft tissues: Small joint effusion. No suspicious soft tissue calcifications. IMPRESSION: No acute osseous abnormalities are seen. Proximal tibial ORIF without evidence of hardware complication. Dictated by: Greg Perez M.D. on 09/06/2025 at 20:34 Approved by: Greg Perez M.D. on 09/06/2025 at 20:35
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
[2025-09-06] MEDS: KETOROLAC 30 MG/ML VIAL 15 MG IV (23:37)
--- NOTE | 2025-09-07 00:07 | PC.NURSE ---
Cleansed wound, placed non adherant gauze, wrapped with a gauze wrap followed by an isacc bandage to keep knee straight untill he can place his personal knee immobilizer on at home.
[2025-09-07 00:09] VITALS: BP 124/68; PULSE 72; RESP 15; O2SAT 98
== END 2025-09-07 00:10 | disposition home or self-care (01) ==
PROVIDERS: Emergency Provider Emergency Medicine; PCP Family Medicine
DX: S81.012A Laceration without foreign body, left knee, initial encounter (principal); W29.3XXA Contact with powered garden and outdoor hand tools and machinery, initial encounter
CPT/HCPCS: 12032; 20610; 73562; 96374; 99283; 99284; J0689; J1885